=== PATIENT | female | born 1945 | race American Indian/Alaskan Native ===

== ENCOUNTER 2020-02-12 16:17 | Observation (INO) | payer MEDICARE ==
--- NOTE | 2020-02-12 17:32 | Emergency Department Report ---
ED Seizure HPI - General Chief Complaint: Seizure Stated Complaint: POSS SZ Time Seen by Provider: 02/12/20 17:27 Source: family, EMS Mode of arrival: Stretcher Limitations: No Limitations - History of Present Illness Initial Comments: Patient is 74-year-old female with no significant past medical history except for dementia. Patient brought to the emergency room via EMS from home for evaluation of possible seizure. Patient accompanied by her daughter who is giving most of the history. Daughter stated that her mother was doing well and looking at her phone book and all of a sudden she turned to the left side, eyes rolled back and he started shaking for approximately 2 minutes and then she went to sleep. She stated that she never had any history of seizure before. She denied any injury. She denied any prior symptoms. Patient is alert, oriented x2. Daughter denies any recent history of fever, chills, chest pain, shortness of breath, weakness numbness or tingling sensation. MD Complaint: possible seizure -: This afternoon Description of Episode: loss of consciousness, tonic-clonic movement, post-event confusion Witnessed:: Yes Trauma: No Seizure History: none Place: home Possible Precipitating Event: none Associated Symptoms: denies other symptoms - Related Data Allergies Allergy/AdvReac Type Severity Reaction Status Date / Time No Known Allergies Allergy Verified 02/12/20 17:03 ED Review of Systems ROS: Stated complaint: POSS SZ Other details as noted in HPI Comment: All other systems reviewed and negative Constitutional: denies: chills, fever Respiratory: denies: cough, shortness of breath, SOB with exertion, wheezing Cardiovascular: denies: chest pain Gastrointestinal: denies: abdominal pain, nausea, vomiting, diarrhea, constipation, hematemesis, melena, hematochezia Musculoskeletal: denies: back pain Neurological: denies: headache, weakness, numbness, paresthesias, confusion ED Past Medical Hx - Past Medical History Previous Medical History?: Yes Additional medical history: dementia, Hep C - Surgical History Past Surgical History?: No - Social History Smoking Status: Current Every Day Smoker Substance Use Type: None ED Physical Exam - General Limitations: No Limitations General appearance: alert, in no apparent distress - Head Head exam: Present: atraumatic, normocephalic, normal inspection - Eye Eye exam: Present: normal appearance - ENT ENT exam: Present: normal exam, normal orophraynx, mucous membranes moist - Neck Neck exam: Present: normal inspection, full ROM. Absent: tenderness, meningismus, lymphadenopathy, thyromegaly - Respiratory Respiratory exam: Present: normal lung sounds bilaterally - Cardiovascular Cardiovascular Exam: Present: regular rate, normal rhythm, normal heart sounds - GI/Abdominal GI/Abdominal exam: Present: soft, normal bowel sounds. Absent: distended, tenderness, guarding, rebound, rigid, organomegaly, mass, bruit, pulsatile mass, hernia - Extremities Exam Extremities exam: Present: normal inspection, full ROM, normal capillary refill. Absent: tenderness, pedal edema, calf tenderness - Back Exam Back exam: Present: normal inspection, full ROM. Absent: CVA tenderness (R), CVA tenderness (L), muscle spasm, paraspinal tenderness, vertebral tenderness - Neurological Exam Neurological exam: Present: alert, oriented X3, CN II-XII intact, normal gait, reflexes normal. Absent: motor sensory deficit - Psychiatric Psychiatric exam: Present: normal mood - Skin Skin exam: Present: warm, intact, normal color ED Course Vital Signs 02/12/20 16:59 Pulse Rate 82 Respiratory 16 Rate Blood Pressure 139/89 [Left] O2 Sat by Pulse 97 Oximetry ED Medical Decision Making - Lab Data Result diagrams: 02/12/20 18:11 02/12/20 18:11 - EKG Data -: EKG Interpreted by [place] EKG shows normal: sinus rhythm Rate: normal - EKG Data Interpretation: no acute changes - Radiology Data Radiology results: report reviewed - Medical Decision Making Patient is 74-year-old female with no significant past medical history except for dementia. Patient brought to the emergency room via EMS from home for evaluation of possible seizure. Patient accompanied by her daughter who is giving most of the history. Daughter stated that her mother was doing well and looking at her phone book and all of a sudden she turned to the left side, eyes rolled back and he started shaking for approximately 2 minutes and then she went to sleep. She stated that she never had any history of seizure before. She denied any injury. She denied any prior symptoms. Patient is alert, oriented x2. Daughter denies any recent history of fever, chills, chest pain, shortness of breath, weakness numbness or tingling sensation. No seizure activity observed in the ER. Patient received Keppra 1 g IV as a loading dose. CT brain is negative for acute finding. Labs reviewed and is unremarkable. I discussed the patient with Dr. Alejandra Crum, she agreed to admit the patient to medical service for further management. Critical care attestation.: If time is entered above; I have spent that time in minutes in the direct care of this critically ill patient, excluding procedure time. ED Disposition Clinical Impression: Altered mental status, New onset seizure Disposition: OP ADMIT IP TO THIS HOSP Is pt being admited?: Yes Condition: Stable
--- NOTE | 2020-02-12 18:11 | Cat Scan Report ---
CT head/brain wo con INDICATION / CLINICAL INFORMATION: 74 years Female; MAIN: AMS, headache, . TECHNIQUE: Routine CT head without contrast. All CT scans at this location are performed using CT dos e reduction for ALARA by means of automated exposure control. COMPARISON: None. FINDINGS: BRAIN / INTRACRANIAL CONTENTS: There is extensive cerebral white matter disease most consistent with microvascular angiopathy. The motion degrades the image quality. However, there is no clear CT eviden ce of acute intracranial hemorrhage or significant mass effect. ORBITS: No significant abnormality of visualized orbits. SINUSES / MASTOIDS: No significant abnormality the visualized paranasal sinuses or mastoid air cells. CRANIOCERVICAL JUNCTION: No significant abnormality. ADDITIONAL FINDINGS: None. IMPRESSION: 1. There is extensive microvascular angiopathy without CT evidence of acute intracranial hemorrhage. Signer Name: David Nava MD Signed: 02/12/2020 6:07 PM Workstation Name: [id number]
[2020-02-12] MEDS ORDERED: levETIRAcetam 1000 MG/NS 0.75% 1,000 MG/100 ML BAG IV ONE (18:33)
[2020-02-12 18:45] LABS: Basophils # (Auto) 0.1 K/mm3 (0.0-0.1); Basophils % (Auto) 1.1 % (0.0-1.8); Eosinophils % (Auto) 0.3 % (0.0-4.3); Hematocrit 44.3 % (30.3-42.9); Hemoglobin 14.3 gm/dl (10.1-14.3); Lymphocytes # (Auto) 1.4 K/mm3 (1.2-5.4); Lymphocytes % (Auto) 19.5 % (13.4-35.0); Mean Corpuscular HGB Conc 32 % (30-34); Mean Corpuscular Volume 89 fl (79-97); Monocytes # (Auto) 0.5 K/mm3 (0.0-0.8); Monocytes % (Auto) 6.5 % (0.0-7.3); Platelet Count 197 K/mm3 (140-440); Red Blood Count 4.99 M/mm3 (3.65-5.03); Red Cell Distribution Width 14.3 % (13.2-15.2)
[2020-02-12 19:07] LABS: Alanine Aminotransferase 24 units/L (7-56); Albumin 3.9 g/dL (3.9-5); BUN/Creatinine Ratio 13; Blood Urea Nitrogen 9 mg/dL (7-17); Calcium 9.9 mg/dL (8.4-10.2); Hemolysis Index 59
--- NOTE | 2020-02-12 22:08 | History and Physical Report ---
History of Present Illness History of present illness: 74-year-old woman with a history of dementia, hepatitis C was brought to the emergency room by daughter for evaluation. She states that she was sitting at the table looking through books when she suddenly started shaking, foaming at the mouth. This lasted for 5 minutes, she was brought to the emergency room for further evaluation, denies trauma to the head. Status post loading dose of Keppra. Review of system unobtainable secondary to dementia, patient will be admitted for new onset seizure PAST MEDICAL HISTORY: dementia, hepatitis C PAST SURGICAL HISTORY: None SOCIAL HISTORY: Denies alcohol, +tobacco, no drugs FAMILY HISTORY: Hypertension Medications and Allergies Allergies Allergy/AdvReac Type Severity Reaction Status Date / Time No Known Allergies Allergy Verified 02/12/20 17:03 Exam - Physical Exam Narrative exam: Gen. appearance: Patient lying in bed, no apparent distress HEENT: Normocephalic, atraumatic, pupils equally round and reactive to light, extraocular movement intact, and no sclericterus,. No JVD or thyromegaly or nodule,neck supple, no carotid bruit ,mucous membranes moist, no exudate or erythema Heart: S1, S2, regular rate and rhythm Lungs: Clear bilaterally, breathing comfortable Abdomen: Positive bowel sounds, nontender, nondistended, no organomegaly Extremity: no edema, cyanosis, clubbing Skin: No rash, nodules, warm, dry Neuro: speech is fluent, moves extremities, sensory intact - Constitutional Vitals: Temp Pulse Resp BP Pulse Ox 82 18 145/83 98 02/12/20 21:26 02/12/20 21:26 02/12/20 21:26 02/12/20 21:26 Results - Labs CBC & Chem 7: 02/12/20 18:11 02/12/20 18:11 Labs: Abnormal lab results 02/12/20 02/12/20 Range/Units 18:11 18:11 Hct 44.3 H (30.3-42.9) % Seg Neutrophils % 72.6 H (40.0-70.0) % Sodium 135 L (137-145) mmol/L Carbon Dioxide 18 L (22-30) mmol/L - Imaging and Cardiology CT Scan - head: report reviewed Assessment and Plan Assessment New onset seizure Obtain EEG, consult neurology IV Ativan as needed for seizure activity Status post loading dose of IV Keppra, check chest x-ray Dementia stable DVT prophylaxis
[2020-02-12] MEDS ORDERED: ACETAMINOPHEN 325 MG TAB ONE (22:14)
[2020-02-12] MEDS ORDERED: ONDANSETRON 4 MG/2 ML INJ IV PRN (22:27)
[2020-02-12] MEDS ORDERED: ACETAMINOPHEN 325 MG TAB PO PRN (22:27)
[2020-02-12] MEDS ORDERED: LORazepam 2 MG/ML VIAL IV PRN (23:11)
--- NOTE | 2020-02-12 23:59 | XRay Report ---
CHEST 1 VIEW INDICATION: MAIN: szPer pt's family pt was 'sitting at the dinner table and started convulsing'. Per pt and fami ly pt only has a hx of dementia and Hep C. Pt c/o CARDENAS and rates pain at a 3/10. per EMS BG of 139.. COMPARISON: None FINDINGS: SUPPORT DEVICES: None. HEART / MEDIASTINUM: No significant abnormality. LUNGS / PLEURA: No significant pulmonary or pleural abnormality. No pneumothorax. ADDITIONAL FINDINGS: IMPRESSION: 1. No acute cardiopulmonary disease Signer Name: Eamon Adams MD Signed: 02/12/2020 11:55 PM Workstation Name: [id number]
[2020-02-13 00:09] LABS: Bacteria,Urine 1+ /HPF (Negative); Bilirubin,Urine NEG (Negative); Blood,Urine NEG (Negative); Color,Urine Yellow (Yellow); Mucus,Urine FEW /HPF; Urobilinogen,Urine < 2.0 mg/dL (<2.0)
[2020-02-13 00:10] LABS: Amphetamine Screen,Urine PRESUMPTIVE NEGATIVE; Benzodiazepines Screen,Urine PRESUMPTIVE NEGATIVE; Cannabinoid Screen,Urine PRESUMPTIVE NEGATIVE; Cocaine Screen,Urine PRESUMPTIVE NEGATIVE; Methadone Screen,Urine PRESUMPTIVE NEGATIVE; Opiate Screen,Urine PRESUMPTIVE NEGATIVE
[2020-02-13 08:24] LABS: Basophils # (Auto) 0.1 K/mm3 (0.0-0.1); Basophils % (Auto) 1.2 % (0.0-1.8); Eosinophils # (Auto) 0.1 K/mm3 (0.0-0.4); Eosinophils % (Auto) 1.7 % (0.0-4.3); Hematocrit 42.5 % (30.3-42.9); Hemoglobin 13.8 gm/dl (10.1-14.3); Lymphocytes # (Auto) 2.6 K/mm3 (1.2-5.4); Lymphocytes % (Auto) 40.9 % (13.4-35.0); Mean Corpuscular HGB Conc 32 % (30-34); Mean Corpuscular Volume 89 fl (79-97); Monocytes # (Auto) 0.5 K/mm3 (0.0-0.8); Monocytes % (Auto) 8.2 % (0.0-7.3); Platelet Count 171 K/mm3 (140-440); Red Cell Distribution Width 14.1 % (13.2-15.2)
[2020-02-13 08:45] LABS: BUN/Creatinine Ratio 21; Blood Urea Nitrogen 15 mg/dL (7-17); Calcium 9.1 mg/dL (8.4-10.2); Hemolysis Index 7
[2020-02-13 08:59] VITALS: BP 110/64
[2020-02-13] MEDS ORDERED: ENOXAPARIN 30 MG/0.3 ML INJ SUB-Q SCH (10:00)
[2020-02-13] MEDS ORDERED: ENOXAPARIN 40 MG/0.4 ML INJ SUB-Q SCH (10:00)
--- NOTE | 2020-02-13 11:43 | Progress Note ---
Subjective Date of service: 02/13/20 Interval history: 74-year-old AAF with a history of dementia, hepatitis C was brought to the ED for possible seizures. She is she is status post loading dose of Keppra. Patient is awake and alert self and age and presented here. She offers no specific complaints. She denies any chest pain or shortness of breath. She denies any fever or chills. Denies nausea or abdominal pain or dysuria. She does not have tongue bite. Vital signs reviewed On examination Awake and alert, no apparent distress HEENT: Normocephalic, pupils round reactive to light, throat is clear Neck: Supple no JVD Lungs: Clear to auscultation Heart: Regular rate and rhythm Abdomen benign: Extremities: No leg edema [employer]: Patient is awake alert and fairly oriented, moves all extremities Lab results reviewed A/P: New onset seizure Continue Keppra 500 twice daily for now EEG ordered Neurology consulted Evaluation pending History of dementia Continue home medication History of hepatitis C: Unclear if the patient has been treated Objective - Constitutional Vitals: Vital Signs - 12hr 02/12/20 02/12/20 02/13/20 23:40 23:50 00:00 Temperature Pulse Rate Respiratory Rate Blood Pressure 145/83 145/83 145/83 Blood Pressure [Left] O2 Sat by Pulse 97 96 98 Oximetry 02/13/20 02/13/20 02/13/20 00:10 00:42 00:44 Temperature 97.3 F L Pulse Rate 86 77 Respiratory 20 Rate Blood Pressure 145/83 Blood Pressure [Left] O2 Sat by Pulse 98 95 96 Oximetry 02/13/20 02/13/20 02/13/20 00:59 01:59 08:41 Temperature 98.6 F Pulse Rate 75 Respiratory 20 20 Rate Blood Pressure 110/64 Blood Pressure 103/52 [Left] O2 Sat by Pulse 96 93 Oximetry - Labs CBC & Chem 7: 02/13/20 06:38 02/13/20 06:38 Labs: Abnormal lab results 02/12/20 02/12/20 02/13/20 Range/Units 18:11 18:11 06:38 Hct 44.3 H (30.3-42.9) % Lymph % (Auto) 40.9 H (13.4-35.0) % [place] % (Auto) 8.2 H (0.0-7.3) % Seg Neutrophils % 72.6 H (40.0-70.0) % Sodium 135 L (137-145) mmol/L Carbon Dioxide 18 L (22-30) mmol/L 02/13/20 Range/Units 06:38 Hct (30.3-42.9) % Lymph % (Auto) (13.4-35.0) % [place] % (Auto) (0.0-7.3) % Seg Neutrophils % (40.0-70.0) % Sodium (137-145) mmol/L Carbon Dioxide 20 L (22-30) mmol/L
--- NOTE | 2020-02-13 13:53 | Progress Note ---
Subjective Date of service: 02/13/20 Interval history: very severe frrontalwhite matter changes right and left certainly suspect seizures are from this likely brain atrophy as welll will follow therpasy and get eeg. Objective - Vital Sign Vital Signs - 12hr 02/13/20 02/13/20 01:59 08:41 Temperature 98.6 F Pulse Rate 75 Respiratory 20 20 Rate Blood Pressure 110/64 O2 Sat by Pulse 96 93 Oximetry - Laboratory Findings CBC and BMP: 02/13/20 06:38 02/13/20 06:38 Abnormal Lab Findings: Abnormal Labs 02/12/20 02/12/20 02/13/20 18:11 18:11 06:38 Hct 44.3 H Lymph % (Auto) 40.9 H [place] % (Auto) 8.2 H Seg Neutrophils % 72.6 H Sodium 135 L Carbon Dioxide 18 L 02/13/20 06:38 Hct Lymph % (Auto) [place] % (Auto) Seg Neutrophils % Sodium Carbon Dioxide 20 L
[2020-02-13] MEDS ORDERED: HALOPERIDOL LACTATE 5 MG/1 ML INJ IM ONE (14:00)
[2020-02-13] MEDS ORDERED: levETIRAcetam 500 MG TAB PO SCH (22:00)
== END 2020-02-13 14:20 | disposition left against medical advice (07) ==
LOC: ED 16:17 → 2B-ACE 22:06
PROVIDERS: ADMIT Internal Medicine; ATTEND Internal Medicine
DX: R56.9 Unspecified convulsions (principal); R41.82 Altered mental status, unspecified; F03.90 Unspecified dementia, unspecified severity, without behavioral disturbance, psychotic disturbance, mood disturbance, and anxiety; F17.200 Nicotine dependence, unspecified, uncomplicated; Z86.19 Personal history of other infectious and parasitic diseases
CPT/HCPCS: 36415; 70450; 71045; 80048; 80053; 80307; 81001; 84484; 85025; 93005; 93010; 96372; 96374; 99285; G0378; J1650; J1953; J1630